=== PATIENT | female | born 1955 | race Caucasian/White ===

== ENCOUNTER 2021-12-15 09:30 | Emergency (ER) | payer OTHER ==
[~2021-12-15] VITALS: Ht 152.4 cm; Wt 54.0 kg
[2021-12-15] MEDS ORDERED: GLUMETZA1000 MG (10:01)
== END 2021-12-15 12:37 | disposition home or self-care (01) ==
LOC: ER 09:30
DX: R10.84 Generalized abdominal pain (principal); E11.9 Type 2 diabetes mellitus without complications; Z79.84 Long term (current) use of oral hypoglycemic drugs; Z88.6 Allergy status to analgesic agent